=== PATIENT | male | born 1995 | race Caucasian/White ===

== ENCOUNTER → 2019-03-01 | Outpatient (CLI) | payer OTHER ==
--- NOTE | 2019-03-02 12:53 | CT ---
EXAMINATION TYPE: CT wrist LT wo con DATE OF EXAM: 03/01/2019 COMPARISON: None HISTORY: Left wrist pain after injury. CT DLP: 232 mGycm Automated exposure control for dose reduction was used. CT of the left breast is performed in the axial plane at 2 mm thick sections. Reconstructed images in coronal and sagittal plane are reviewed. Three-D reconstructed images performed separately on the [employer] computer are reviewed. FINDINGS: There is a nondisplaced fracture of the vocal the hamate. There is a comminuted fracture of the distal metaphyseal radius. This has fracture line extension int o the articular surface of the radius. There is a nondisplaced fracture through the scaphoid. Subtle fracture is within the superior lunate. IMPRESSION: 1. COMMINUTED FRACTURE OF THE DISTAL METAPHYSEAL RADIUS WITH EXTENSION INTO THE ARTICULAR SURFACE. 2. NONDISPLACED FRACTURES OF THE HOOK OF THE HAMATE, THE SCAPHOID, AND LIKELY OF THE DISTAL LUNATE.
== END ==
LOC: RADCTMAIN 16:24
PROVIDERS: ATTEND Orthopaedic Surgery
DX: S52.572A Other intraarticular fracture of lower end of left radius, initial encounter for closed fracture (principal); S62.155A Nondisplaced fracture of hook process of hamate [unciform] bone, left wrist, initial encounter for closed fracture; S62.002A Unspecified fracture of navicular [scaphoid] bone of left wrist, initial encounter for closed fracture

== ENCOUNTER → 2019-05-01 | Outpatient (CLI) | payer OTHER | END | disposition home or self-care (01) | LOC: LABWHC1 14:58 | PROVIDERS: ATTEND Orthopaedic Surgery | DX: S62.022D Displaced fracture of middle third of navicular [scaphoid] bone of left wrist, subsequent encounter for fracture with routine healing (principal); S52.572D Other intraarticular fracture of lower end of left radius, subsequent encounter for closed fracture with routine healing; M25.532 Pain in left wrist; S62.155D Nondisplaced fracture of hook process of hamate [unciform] bone, left wrist, subsequent encounter for fracture with routine healing | CPT/HCPCS: 36415; 82306 ==

== ENCOUNTER → 2019-06-15 | Outpatient (CLI) | payer OTHER ==
--- NOTE | 2019-06-15 16:59 | CT ---
EXAMINATION TYPE: CT wrist LT wo con DATE OF EXAM: 06/15/2019 COMPARISON: Prior CT wrist 03/01/2019 HISTORY: f/u left wrist fx CT DLP: 148.8 mGycm Automated exposure control for dose reduction was used. Helical imaging through the left wrist. Coron al and sagittal reconstructions. FINDINGS: There is been interval fracture healing. Persistent lucency extends into the wrist joint, focal defec t noted at the level of the distal aspect of the radius and its articulation with the lunate. Alignme nt is essentially stable. Hamate shows apposition, there is a persistent lucency however fracture to be healed. Lucency at the cortex of the scaphoid however bone appears to be healed. No evident fracture of the lunate. IMPRESSION: INTERVAL FRACTURE HEALING DESCRIBED.
== END | disposition home or self-care (01) ==
LOC: RADCTMAIN 15:18
PROVIDERS: ATTEND Orthopaedic Surgery
DX: S52.572D Other intraarticular fracture of lower end of left radius, subsequent encounter for closed fracture with routine healing (principal)

== ENCOUNTER → 2020-06-09 | Outpatient (CLI) | payer SELFPAY | END | disposition home or self-care (01) | LOC: LABWHC1 11:26 | PROVIDERS: ATTEND Emergency Medicine | DX: Z20.828 Contact with and (suspected) exposure to other viral communicable diseases (principal) | CPT/HCPCS: U0003; C9803 ==